=== PATIENT | female | born 1970 | race Caucasian/White ===

== ENCOUNTER 2022-01-27 10:44 | Emergency (ER) | payer OTHER ==
[2022-01-27 11:48] LABS: HEMOGLOBIN 10.3 gm/dl (12.3-15.3); RED BLOOD COUNT 3.4 M/UL (4.00-5.10); WHITE BLOOD COUNT 6.3 K/UL (4.5-11.0)
[2022-01-27 12:08] LABS: BUN/CREATININE RATIO 11 (0-10)
== END 2022-01-27 15:11 | disposition home or self-care (01) ==
LOC: ER1 10:44
PROVIDERS: Nurse Practitioner
DX: N93.9 Abnormal uterine and vaginal bleeding, unspecified (principal); Z88.1 Allergy status to other antibiotic agents
CPT/HCPCS: 76830; 80053; 81001; 85025; 86850; 86870; 86880; 86900; 86901; 87086; 99284